=== PATIENT | female | born 1970 | race Caucasian/White ===

== ENCOUNTER 2024-04-17 17:04 | Emergency (ER) | payer BC, OTHER ==
[2024-04-17] MEDS: Lidocaine 1% 10 ML MDV INJECT ONE (18:36)
== END 2024-04-17 18:35 ==
LOC: JD.ED 17:04
DX: S01.81XA Laceration without foreign body of other part of head, initial encounter (principal); W01.0XXA Fall on same level from slipping, tripping and stumbling without subsequent striking against object, initial encounter; Y99.0 Civilian activity done for income or pay
CPT/HCPCS: 12013; 70450; 70450-26; 99283; J3490